=== PATIENT | female | born 1940 | race Caucasian/White ===

== ENCOUNTER 2016-09-02 06:25 | Day surgery (SDC) | payer OTHER ==
--- NOTE | 2016-08-31 15:00 | HP ---
[id number] endometrium with possible hyperplasia. Patient is on tamoxiphene for treatment of breast cancer History of Present Illness: This patient has been treated with tamoxiphene for breast cancer. A recent TV- U/S to monitor the endometrium reveals a thickened endometrium(21mm).The norm is 4 or less. 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: Alzheimer's, CVA, Dementia, Migraine, Multiple Sclerosis, Peripheral Neuropathy, Parkinson's, Seizure, Syncope, TIA, Vertigo, Other Cardiovascular: No: AFIB, Aneurysm, Aortic Insufficiency, Aortic Stenosis, CAD, CHF, Deep Vein Thrombosis, HTN, Hyperlipdemia, DC, Mitral Insufficiency, Mitral Stenosis, Murmur, Pulmonary Hypertension, Other Pulmonary: No: Asthma, Bronchitis, Cancer, COPD, O2 Dependent, Pneumonia, Previously Intubated, Pulmonary Embolus, Pulmonary Fibrosis, Sleep Apnea, Other Gastrointestinal: No: Ascites, Cancer, Constipation, Crohn's Disease, Diverticulitis, Diverticulosis, Esophageal Varices, Gastritis, GERD, GI Bleed, Hemorrhoids, Hiatal Hernia, Inflamatory Bowel Disease, Irritable Bowel Disease, Pancreatitis, Peptic Ulcer Disease, Ulcerative Colitis, Other Hepatobiliary: No: Cirrhosis, Cholelithiasis, Cholecystitis, Choledocholithiasis , Hepatitis A, Hepatitis B, Hepatitis C, Other Renal/: No: Renal Failure, Renal Inusuff, BPH, Cancer, Hematuria, Hemodialysis , Neurogenic Bladder, Renal Calculi, UTI, Other Reproductive: No: Ectopic , Endometriosis, Fibroids, PID, Polycystic Ovary Syndrome, Postmenopausal, Other ...: No ...: 3 ...Para: 3 Heme/Onc: No: Anemia, B12 Deficiency, Bleeding Disorder, Cancer, Current Chemotherapy, Current Radiation Therapy, Hemochromatosis, Hypercoaguable State, Myeloproliferative Synd, Sickle Cell Disease, Sickle Cell Trait, Thrombocytopenia, Other Infectious Disease: Yes: AIDS, C-Diff, Herpes Zoster, HIV, MRSA, STD's, Tuberculosis, VREF, Other Musculoskeletal: No: Bursitis, Chronic low back pain, Hemiparesis, Hemiplegia, Osteoarthritis, Paraplegia, Other Rheumatology: No: Fibromyalgia, Gout, Lupus, Rheumatoid Arthritis, Sarcoidosis, Vasculitis, Other ENT: No: Allergic Rhinitis, Sinusitis, Other Endocrine: Yes: Hypothyroidism (hypertension, osteopenia, left sided breast cancer, stress incontinence) Additional Medical History: Pt has a history of CLL which accounts for the elevation of her WBC. - Current Medications Current Medications: Home Medications Medication Instructions Recorded Levothyroxine [Synthroid -] 50 mcg PO DAILY 01/05/12 Acetaminophen [Tylenol .Regular 650 mg PO Q4H PRN #0 tablet 01/21/12 Strength -] Olmesartan/Hydrochlorothiazide 1 each PO DAILY 07/02/14 [Benicar Hct 40-12.5 mg Tablet] Amlodipine Besylate [Norvasc -] 2.5 mg PO HS 09/01/16 Satellite Physical Exam - Physical Examination General Appearance: Well Nourished, Well Developed, Alert & Oriented x3 ENT: Clear, No Discharge, No masses Lung: Clear to auscultation Heart: Regular rate & rhythm, Normal S1, Normal S2 Breasts: Soft, Non-Tender, No masses bilaterally Abdomen: Soft, No tenderness, No CVA Extremities: No edema, No tenderness/swelling Pelvic Exam: Within normal limits External Genitalia, Within normal limits Vagina, Within normal limits Cervix, Within normal limits Uterus, Within normal limits [facility] Neurological: Intact, Alert, Oriented Satellite Impression/Plan - Impression/Plan Impression: endometrial hyperplasia Operative Procedure: Hysteroscopy D/C polypectomy prn Date to be Performed: 09/02/16
[2016-09-01 09:48] VITALS: BMI 40.2
[2016-09-02] MEDS ORDERED: MIDAZOLAM HCL 2 MG/2 ML SINGLE DOSE VIAL ONE (07:33)
[2016-09-02] MEDS ORDERED: PROPOFOL 20 ML ONE ×2 (07:38)
[2016-09-02] MEDS ORDERED: ACETAMINOPHEN 325 MG TABLET (FP) PO PRN (08:57)
[2016-09-02] MEDS ORDERED: ONDANSETRON 4 MG/2 ML VIAL IVPUSH PRN (08:57)
[2016-09-02] MEDS ORDERED: LACTATED RINGERS SOLUTION 1,000 ML IV SCH (09:00)
[2016-09-02 09:19] VITALS: TEMP 97.9
--- NOTE | 2016-09-02 10:41 | OP ---
DATE OF OPERATION: 09/02/2016 PREOPERATIVE DIAGNOSIS: Endometrial hyperplasia, thickened endometrium. POSTOPERATIVE DIAGNOSIS: Endometrial hyperplasia, thickened endometrium. OPERATIVE PROCEDURE: Dilatation and curettage, hysteroscopy. SURGEON: Ta Barajas MD ANESTHESIA: MAC given by the anesthesiologist. ESTIMATED BLOOD LOSS: 5 mL. DESCRIPTION OF PROCEDURE: The patient was brought to the operating room, placed in a supine position, given anesthesia, then, placed in the lithotomy position. The patient was examined. The uterus was noted to be in the midline, normal size. Adnexa negative. The vagina was prepped and draped in the usual manner with Betadine. The anterior lip of the cervix was grasped with a tenaculum after a speculum was placed into the vagina. The uterus was sounded to 11 cm. Hysteroscopy was then performed using a hysteroscope. Hysteroscopy revealed that the endometrium appeared atrophic. There were no polyps noted, no fibroids, no thickened tissue. The endocervical canal was noted to have multiple folds, and it was very prominent. A dilatation and curettage was carried out,using a medium currete which included the endometrium and the endocervical canal, and a very small amount of tissue was obtained. The tissue that was obtained was sent to Pathology for analysis. The hemostasis was good. The patient tolerated the procedure well. The patient did well and was transferred to the recovery room. Her vital signs were stable. TA BARAJAS M.D. YESSENIA/[id number] MTDD
[2016-09-02 11:05] VITALS: BP 120/58; PULSE 63
--- NOTE | 2016-09-07 11:19 | PATH ---
Surgical Pathology Report Patient Name: JULIAN MCINTOSH [facility]. Rec. #: [id number] /Age/Gender: 1940 (Age: 76) / F Account: [id number] Location: [facility] SURGICAL Taken: 09/02/2016 Received: 09/02/2016 Reported: 09/05/2016 Physicians: Mason Barajas M.D. Specimen(s) Received ENDOMETRIAL CURETTINGS Clinical History Endometrial hyperplasia Final Diagnosis ENDOMETRIAL TISSUE: FRAGMENTS OF ENDOMETRIAL POLYP. NO HYPERPLASIA OR CARCINOMA IDENTIFIED IN THE EXAMINED MATERIAL. Electronically Signed Troy Colvin M.D. Gross Description Received in formalin labeled "endometrial tissue" are 2 ronquillo brown, irregular portions of soft tissue measuring 0.3 and 0.7 cm in greatest dimension. The specimens are submitted in toto in one cassette. 09/02/201609/02/2016
== END 2016-09-02 10:15 | disposition home or self-care (01) ==
LOC: JASU-SURG 06:25
PROVIDERS: ATTEND Obstetrics & Gynecology
PROC: 0UDB8ZX Extraction of Endometrium, Via Natural or Artificial Opening Endoscopic, Diagnostic (ICD-10-PCS; principal; 2016-09-02 07:30)
DX: N85.00 Endometrial hyperplasia, unspecified (principal); R93.8 Abnormal findings on diagnostic imaging of other specified body structures; C50.919 Malignant neoplasm of unspecified site of unspecified female breast
CPT/HCPCS: 86850; 86900; 86901; 88305-TC; 94760

== ENCOUNTER 2021-04-22 12:13 | Emergency (ER) | payer OTHER ==
[2021-04-22 12:30] VITALS: BP 148/57; PULSE 75; TEMP 97.9; BMI 40.2
== END 2021-04-22 17:13 | disposition home or self-care (01) ==
LOC: JER 12:13
DX: R68.83 Chills (without fever) (principal); R05.9 Cough, unspecified; R06.02 Shortness of breath
CPT/HCPCS: 71046-TC-FY; 87804; 99284-25; C9803; U0003; U0005

== ENCOUNTER 2022-01-29 16:59 | Emergency (ER) | payer OTHER ==
[2022-01-29 17:15] VITALS: BP 145/65; PULSE 79; RESP 18; TEMP 98.4; BMI 38.4
[2022-01-29] MEDS ORDERED: LIDOCAINE VISCOUS 2% ORAL/TOP 15 ML UNIT-DOSE CUP MM ONE (19:57)
[2022-01-29] MEDS ORDERED: DIPHTH,PERTUSS(ACELL),TET 0.5 ML DISP.SYRIN IM ONE ×2 (19:57→20:06)
[2022-01-29] MEDS ORDERED: LIDOCAINE VISCOUS 2% ORAL/TOP 15 ML UNIT-DOSE CUP ONE (20:06)
[2022-01-29] MEDS ORDERED: AMOX TR/POT CLAV 875MG/125MG TABLETS (FP) PO ONE (20:44)
[2022-01-29] MEDS ORDERED: AMOX TR/POT CLAV 875MG/125MG TABLETS (FP) ONE (20:48)
== END 2022-01-29 21:13 | disposition home or self-care (01) ==
LOC: JERFT 16:59
PROC: 0HQ1XZZ Repair Face Skin, External Approach (ICD-10-PCS; principal; 2022-01-29)
PROC: 0CQ1XZZ Repair Lower Lip, External Approach (ICD-10-PCS; 2022-01-29)
PROC: 0CQ0XZZ Repair Upper Lip, External Approach (ICD-10-PCS; 2022-01-29)
PROC: 3E0234Z Introduction of Serum, Toxoid and Vaccine into Muscle, Percutaneous Approach (ICD-10-PCS; 2022-01-29)
DX: S01.511A Laceration without foreign body of lip, initial encounter (principal); S01.411A Laceration without foreign body of right cheek and temporomandibular area, initial encounter; M25.512 Pain in left shoulder; M25.561 Pain in right knee; W10.9XXA Fall (on) (from) unspecified stairs and steps, initial encounter
CPT/HCPCS: 12001-25; 12011-25; 70450-TC; 90471; 90715; 93005; 93010; 99284-25

== ENCOUNTER 2022-06-09 15:36 | Emergency (ER) | payer OTHER ==
[2022-06-09 15:47] VITALS: BP 158/79; PULSE 84; RESP 18; TEMP 97.8; BMI 39.6
== END 2022-06-09 18:51 | disposition home or self-care (01) ==
LOC: JER 15:36
DX: D72.9 Disorder of white blood cells, unspecified (principal); C91.10 Chronic lymphocytic leukemia of B-cell type not having achieved remission
CPT/HCPCS: 71045-TC-FY; 99283-25

== ENCOUNTER 2023-10-17 09:51 | Emergency (ER) | payer OTHER ==
[2023-10-17 09:55] VITALS: BMI 39.0
[2023-10-17] MEDS ORDERED: ONDANSETRON 4 MG/2 ML VIAL ONE (11:40)
[2023-10-17 11:50] VITALS: BP 132/62; PULSE 81; RESP 18; TEMP 98.6
[2023-10-17] MEDS: SODIUM CHLORIDE 1,000 ML IV STA ×2 (11:52→14:59)
[2023-10-17] MEDS: ONDANSETRON 4 MG/2 ML VIAL IVPUSH ONE (11:53)
[2023-10-17 12:03] LABS: HEMATOCRIT 31.2 % (32.4-45.2); HEMOGLOBIN 9.8 GM/dL (10.7-15.3); MCH 29.8 pg (25.7-33.7); MCHC 31.5 g/dl (32.0-36.0); MEAN CELL VOLUME 94.6 fl (80-96); MEAN PLT VOLUME 7.1 fl (7.5-11.1); PLATELET COUNT 143 10^3/uL (134-434); RBC 3.29 M/mm3 (3.60-5.2); RDW 19.3 % (11.6-15.6)
[2023-10-17 12:14] LABS: WHITE BLOOD COUNT 92.8 K/mm3 (4.0-10.0)
[2023-10-17 12:20] LABS: POTASSIUM 3.4 mmol/L (3.5-5.1)
[2023-10-17 12:23] LABS: ALBUMIN 3.4 g/dl (3.4-5.0); CALCIUM 8.3 mg/dL (8.5-10.1)
[2023-10-17 12:26] LABS: CREATININE 0.8 mg/dL (0.55-1.3)
[2023-10-17 12:28] LABS: BILIRUBIN,TOTAL 0.5 mg/dL (0.2-1); TOT PROT 5.8 g/dl (6.4-8.2)
[2023-10-17 12:42] LABS: ANISOCYTOSIS 0; HELMET CELLS 0; HOWELL-JOLLY BODIES 0; MACROCYTOSIS 0; OVALOCYTE 0; ROULEAU 0; SICKELED CELLS 0; TARGET CELLS 0; TEAR DROP CELLS 0; TOXIC GRANULATION 0
== END 2023-10-17 16:20 | disposition home or self-care (01) ==
LOC: JER 09:51
PROC: 3E0337Z Introduction of Electrolytic and Water Balance Substance into Peripheral Vein, Percutaneous Approach (ICD-10-PCS; principal; 2023-10-17)
PROC: 3E0337Z Introduction of Electrolytic and Water Balance Substance into Peripheral Vein, Percutaneous Approach (ICD-10-PCS; 2023-10-17)
DX: K52.9 Noninfective gastroenteritis and colitis, unspecified (principal); R10.13 Epigastric pain; R11.2 Nausea with vomiting, unspecified; R50.9 Fever, unspecified; Z20.822 Contact with and (suspected) exposure to COVID-19
CPT/HCPCS: 0241U-QW; 36415; 74177-TC; 80053; 83690; 83735; 85025; 93005; 93010; 96360; 96361; 99285-25; Q9967

== ENCOUNTER 2023-10-20 17:34 | Emergency (ER) | payer OTHER ==
[2023-10-20 17:44] VITALS: BP 112/49; PULSE 83; RESP 16; TEMP 98.5; BMI 39.0
[2023-10-20 18:47] LABS: BASO % 0.1 % (0-2.0); EOS % 0.3 % (0-4.5); HEMATOCRIT 30.8 % (32.4-45.2); HEMOGLOBIN 9.4 GM/dL (10.7-15.3); LYMPH % 89.9 % (8-40); MCH 29.1 pg (25.7-33.7); MCHC 30.6 g/dl (32.0-36.0); MEAN PLT VOLUME 7.2 fl (7.5-11.1); MONO % 1.7 % (3.8-10.2); PLATELET COUNT 210 10^3/uL (134-434); RBC 3.24 M/mm3 (3.60-5.2); RDW 18.9 % (11.6-15.6)
[2023-10-20 19:02] LABS: POTASSIUM 3.3 mmol/L (3.5-5.1)
[2023-10-20] MEDS ORDERED: LOPERAMIDE HCL 2 MG CAPSULE ONE (19:02)
[2023-10-20 19:05] LABS: ALBUMIN 3.8 g/dl (3.4-5.0); BLOOD UREA NITROGEN 27.4 mg/dL (7-18)
[2023-10-20 19:07] LABS: CREATININE 1.1 mg/dL (0.55-1.3)
[2023-10-20 19:09] LABS: BILIRUBIN,TOTAL 0.3 mg/dL (0.2-1); TOT PROT 6.1 g/dl (6.4-8.2)
[2023-10-20] MEDS: SODIUM CHLORIDE 0.9% 500 ML INFUS.BAG IV ONE (19:10)
[2023-10-20] MEDS: LOPERAMIDE HCL 2 MG CAPSULE PO ONE (19:10)
[2023-10-20] MEDS ORDERED: POTASSIUM CHLORIDE ORAL LIQUID 20 MEQ/15 ML PO ONE (19:29)
[2023-10-20 20:17] LABS: ANISOCYTOSIS 3+; MACROCYTOSIS 0; OVALOCYTE 1+; ROULEAU 1+
[2023-10-20] MEDS ORDERED: POTASSIUM CHLORIDE ORAL LIQUID 20 MEQ/15 ML ONE (20:31)
== END 2023-10-20 20:44 | disposition home or self-care (01) ==
LOC: JER 17:34
DX: K52.9 Noninfective gastroenteritis and colitis, unspecified (principal); E87.6 Hypokalemia; Z20.822 Contact with and (suspected) exposure to COVID-19
CPT/HCPCS: 0241U-QW; 36415; 80053; 83605; 85025; 93005; 93010; 99284-25